=== PATIENT | female | born 1960 | race Two or more races ===

== ENCOUNTER 2024-07-20 19:16 | Emergency (ER) | payer OTHER ==
[~2024-07-20] VITALS: Ht 175.3 cm; Wt 90.7 kg
[2024-07-20] MEDS: IBUPROFEN 600 MG TABLET PO ONE (22:00)
[2024-07-20] MEDS ORDERED: IBUPROFEN 600 MG TABLET ONE (22:00)
[2024-07-20 22:21] VITALS: BP 133/80; TEMP 98.2; O2SAT 96
== END 2024-07-20 22:22 | disposition home or self-care (01) ==
LOC: ER 19:18
DX: S01.01XA Laceration without foreign body of scalp, initial encounter (principal); I10 Essential (primary) hypertension; M79.7 Fibromyalgia; Z60.2 Problems related to living alone; W01.0XXA Fall on same level from slipping, tripping and stumbling without subsequent striking against object, initial encounter; Y93.89 Activity, other specified; Y92.89 Other specified places as the place of occurrence of the external cause; Y99.8 Other external cause status
CPT/HCPCS: 99284; 72125; 12001; 70450; 70486; A6403 ×2